=== PATIENT | male | born 1935 | race Two or more races ===

== ENCOUNTER 2022-09-30 17:21 | Emergency (ER) | payer OTHER ==
[~2022-09-30] VITALS: Ht 154.9 cm; Wt 71.0 kg
[~2022-09-30 17:21] MED LIST: ASPI1TAB20 PO; FAMO-12 PO; LOS50T PO; MECL25TA94 PO; OMEP20CA74 PO; TRAM100C PO
[2022-09-30] MEDS ORDERED: KETOROLAC TROMETH 60MG/2ML VIAL IM ONE (19:30)
[2022-09-30 19:44] LABS: Hematocrit 39.3 % (41.0-53.0); Hemoglobin 13.4 g/dL (13.5-17.5); Mean Corpuscular Hemoglobin 28.1 pg (28.0-32.0); Mean Corpuscular Hgb Conc. 33.9 g/dL (32.0-36.0); Mean Corpuscular Volume 82.9 fL (80.0-100.0); Red Blood Cells 4.75 10^6/uL (4.5-5.90); Red Cell Distribution Width 14.1 % (11.8-14.3); White Blood Cell 11.5 10^3/uL (4.4-10.8)
[2022-09-30 19:55] LABS: Basophils % (manual) 0 (0.0-2.0); Blast Cells 0; Metamyelocytes % 0; Myelocytes % 0; Promyelocytes % 0; Reactive Lymphocytes 0
[2022-09-30 20:07] LABS: Albumin 4.7 g/dL (3.4-5.0); Calcium 9.1 mg/dL (8.5-10.1); Potassium 4.2 mmol/L (3.5-5.1)
[2022-09-30 20:09] LABS: BUN/Creatinine Ratio 14.4
[2022-09-30 20:29] LABS: Band Neutrophils % (manual) 12; Eosinophils % (manual) 2 (0-7); Lymphocytes % (manual) 8 (10.0-50.0); Monocytes % (manual) 29 (0-12)
[2022-10-01] MEDS ORDERED: ACET-1079 PO (01:02)
[2022-10-01] MEDS ORDERED: CYCL-837 PO (01:02)
[2022-10-01] MEDS ORDERED: LIDO5DIS21 TOP (01:03)
[2022-10-01 05:19] VITALS: BP 138/85
== END 2022-10-01 05:20 | disposition home or self-care (01) ==
LOC: ER 17:24
DX: G31.89 Other specified degenerative diseases of nervous system (principal); K21.9 Gastro-esophageal reflux disease without esophagitis; I10 Essential (primary) hypertension; Z79.899 Other long term (current) drug therapy
CPT/HCPCS: 36415; 70490; 71250; 72125; 80053; 83880; 84484; 85007; 85027; 96372; 99285; J1885; 96375

== ENCOUNTER → 2022-10-23 | Outpatient (CLI) | payer OTHER ==
[~2022-10-23] MED LIST changes: +ACET-1079 PO; +CYCL-837 PO; +LIDO5DIS21 TOP
[2022-10-23 12:57] LABS: Hematocrit 39.3 % (41.0-53.0); Hemoglobin 13.5 g/dL (13.5-17.5); Mean Corpuscular Hemoglobin 28.1 pg (28.0-32.0); Mean Corpuscular Hgb Conc. 34.4 g/dL (32.0-36.0); Mean Corpuscular Volume 81.5 fL (80.0-100.0); Red Blood Cells 4.82 10^6/uL (4.5-5.90); White Blood Cell 4.2 10^3/uL (4.4-10.8)
[2022-10-23 13:37] LABS: Albumin 4.8 g/dL (3.4-5.0); Calcium 9.4 mg/dL (8.5-10.1); Potassium 4.2 mmol/L (3.5-5.1); Total Protein 7.9 g/dL (6.4-8.2)
[2022-10-23 13:56] LABS: Basophils % (manual) 0 (0.0-2.0); Blast Cells 0; Metamyelocytes % 0; Myelocytes % 0; Promyelocytes % 0; Reactive Lymphocytes 0
[2022-10-23 15:48] LABS: Band Neutrophils % (manual) 2; Eosinophils % (manual) 4 (0-7); Lymphocytes % (manual) 25 (10.0-50.0); Monocytes % (manual) 26 (0-12)
== END | disposition home or self-care (01) ==
LOC: LAB 12:00
PROVIDERS: ATTEND Family Medicine
DX: K76.0 Fatty (change of) liver, not elsewhere classified (principal); I10 Essential (primary) hypertension; E78.1 Pure hyperglyceridemia; E66.3 Overweight
CPT/HCPCS: 36415; 80053; 80061; 84443; 85007; 85027

== ENCOUNTER → 2023-01-29 | Outpatient (CLI) | payer OTHER ==
[2023-01-29 11:10] LABS: Hematocrit 37.2 % (41.0-53.0); Hemoglobin 12.8 g/dL (13.5-17.5); Mean Corpuscular Hemoglobin 28.5 pg (28.0-32.0); Mean Corpuscular Hgb Conc. 34.3 g/dL (32.0-36.0); Mean Corpuscular Volume 83.2 fL (80.0-100.0); Red Blood Cells 4.47 10^6/uL (4.5-5.90); Red Cell Distribution Width 14.1 % (11.8-14.3)
[2023-01-29 11:18] LABS: Basophils % (manual) 0 (0.0-2.0); Blast Cells 0; Metamyelocytes % 0; Myelocytes % 0; Promyelocytes % 0; Reactive Lymphocytes 0
[2023-01-29 11:35] LABS: Albumin 4.9 g/dL (3.4-5.0); Calcium 9.6 mg/dL (8.5-10.1); Potassium 5.2 mmol/L (3.5-5.1)
[2023-01-29 11:37] LABS: Band Neutrophils % (manual) 5; Eosinophils % (manual) 4 (0-7); Lymphocytes % (manual) 32 (10.0-50.0); Monocytes % (manual) 12 (0-12)
[2023-01-29 11:38] LABS: BUN/Creatinine Ratio 17.6 (10.0-20.0); Phosphorus 2.3 mg/dL (2.5-4.90)
== END | disposition home or self-care (01) ==
LOC: LAB 10:36
PROVIDERS: ATTEND Family Medicine
DX: N18.30 Chronic kidney disease, stage 3 unspecified (principal); E78.2 Mixed hyperlipidemia; R79.89 Other specified abnormal findings of blood chemistry; D69.6 Thrombocytopenia, unspecified; D64.9 Anemia, unspecified; E55.9 Vitamin D deficiency, unspecified
CPT/HCPCS: 36415; 80061; 80069; 82043; 83036; 84443; 85007; 85027

== ENCOUNTER → 2023-04-04 | Outpatient (CLI) | payer OTHER | END | disposition home or self-care (01) | LOC: LAB 10:56 | PROVIDERS: ATTEND Family Medicine | DX: Z12.11 Encounter for screening for malignant neoplasm of colon (principal) | CPT/HCPCS: 82270 ==

== ENCOUNTER → 2023-06-18 | Outpatient (CLI) | payer OTHER ==
[2023-06-18 11:57] LABS: Basophils # (auto) 0 10 ^3/uL (0-0.2); Basophils % (auto) 0.4 % (0.0-2.0); Eosinophils # (auto) 0.2 10 ^3/uL (0-0.8); Eosinophils % (auto) 4.5 % (0.0-7.0); Hematocrit 38.5 % (41.0-53.0); Hemoglobin 13.2 g/dL (13.5-17.5); Lymphocytes % (auto) 28.2 % (10.0-50.0); Mean Corpuscular Hemoglobin 28.6 pg (28.0-32.0); Mean Corpuscular Hgb Conc. 34.3 g/dL (32.0-36.0); Mean Corpuscular Volume 83.2 fL (80.0-100.0); Monocytes # (auto) 0.7 10 ^3/uL (0-1.3); Neutrophils # (auto) 1.8 10 ^3/uL (1.6-8.6); Neutrophils % (auto) 48.8 % (37.0-80.0); Nucleated Red Blood Cells % 0.1 %; Red Blood Cells 4.63 10^6/uL (4.5-5.90); Red Cell Distribution Width 14.2 % (11.8-14.3); White Blood Cell 3.6 10^3/uL (4.4-10.8)
[2023-06-18 12:06] LABS: Monocytes % (auto) 18.1 % (0.0-12.0)
[2023-06-18 12:30] LABS: Alanine Aminotransferase 22 U/L (7-40); Albumin 5.1 g/dL (3.2-4.8); Alkaline Phosphatase 39 U/L (46-116); Anion Gap 7 (5-15); Aspartate Aminotransferase 29 U/L (13-40); BUN/Creatinine Ratio 12.6 (10.0-20.0); Blood Urea Nitrogen 15 mg/dL (9-23); Calcium 10.1 mg/dL (8.5-10.1); Carbon Dioxide 25 mmol/L (20-30); Chloride 106 mmol/L (98-107); Glucose 92 mg/dL (74-106); Potassium 4.5 mmol/L (3.5-5.1); Sodium 138 mmol/L (136-145)
[2023-06-18 12:31] LABS: Bilirubin, Total 1.1 mg/dL (0.2-1.0)
[2023-06-18 12:35] LABS: Hepatitis B Surface Antibody Negative (Negative)
[2023-06-18 12:38] LABS: Ferritin 105.5 ng/mL (22-322)
[2023-06-18 12:39] LABS: Folate (Folic Acid) 17.72 ng/mL (>5.38)
[2023-06-18 12:46] LABS: Hepatitis B Surface Antigen Negative (Negative)
[2023-06-18 13:00] LABS: % Iron Saturation 21.5 % (20-55)
[2023-06-18 13:07] LABS: Hepatitis B Core IgM Negative
[2023-06-19 07:06] LABS: CMV IgM Antibody <30.0 AU/mL (0.0-29.9)
[2023-06-19 12:07] LABS: Albumin 4.2 g/dL (2.9-4.4); Alpha-1-Globulin 0.2 g/dL (0.0-0.4); Alpha-2-Globulin 0.7 g/dL (0.4-1.0); Gamma Globulin 1.2 g/dL (0.4-1.8); Globulin Total 3.3 g/dL (2.2-3.9); Protein Total Serum 7.5 g/dL (6.0-8.5)
[2023-06-19 13:07] LABS: Anti-Nuclear Antibody Direct Negative (Negative)
[2023-06-19 14:07] LABS: Hepatitis B Core Total Antibod Negative (Negative)
== END | disposition home or self-care (01) ==
LOC: LAB 10:46
PROVIDERS: ATTEND Internal Medicine
DX: D72.819 Decreased white blood cell count, unspecified (principal)
CPT/HCPCS: 36415; 80053; 82607; 82728; 82746; 82977; 83540; 83550; 83615; 84155; 84165; 85025; 86038; 86256; 86644; 86645; 86664; 86703; 86705; 86706; 86803; 87340; 87497; 87517